=== PATIENT | male | born 1990 | race African-American/Black ===

== ENCOUNTER 2021-07-26 11:01 | Emergency (ER) | payer MEDICARE, MEDICAID ==
[~2021-07-26] VITALS: Ht 170.2 cm; Wt 93.0 kg
[~2021-07-26 11:01] MED LIST: NO MEDS
[2021-07-26] MEDS ORDERED: KETOROLAC 30MG/ML VIAL IM ONE (11:30)
[2021-07-26 12:12] LABS: CLARITY URINE CLEAR (CLEAR); COLOR URINE DK YELLOW (YELLOW); KETONES URINE TRACE (NEGATIVE); LEUKOCYTE ESTERASE URINE 1+ (NEGATIVE); NITRITE URINE NEGATIVE (NEGATIVE); OCCULT BLOOD URINE NEGATIVE (NEGATIVE); PROTEIN URINE NEGATIVE (NEGATIVE); SPECIFIC GRAVITY URINE 1.029 (1.005-1.030)
[2021-07-26 12:18] VITALS: BP 160/82
[2021-07-26] MEDS ORDERED: IBUP-2029 MT (12:19)
[2021-07-26] MEDS ORDERED: CEPH500T MT (12:19)
== END 2021-07-26 12:50 | disposition home or self-care (01) ==
LOC: ER 11:01
DX: N45.2 Orchitis (principal); N39.0 Urinary tract infection, site not specified; N50.811 Right testicular pain; I10 Essential (primary) hypertension
CPT/HCPCS: 76870; 81003; 93976; 96372; 99284; J1885

== ENCOUNTER 2025-05-28 15:51 | Emergency (ER) | payer MEDICARE, MEDICAID ==
[~2025-05-28] VITALS: Ht 177.8 cm; Wt 86.0 kg
[~2025-05-28 15:51] MED LIST changes: +ALBU90AE INH; +AZIT500T8 MT; -NO MEDS; +P20 MT
[2025-05-28 16:20] VITALS: O2SAT 97
[2025-05-28 17:20] LABS: CLARITY URINE CLEAR (CLEAR); COLOR URINE YELLOW (YELLOW); GLUCOSE URINE NEGATIVE (NEGATIVE); KETONES URINE TRACE (NEGATIVE); LEUKOCYTE ESTERASE URINE NEGATIVE (NEGATIVE); NITRITE URINE NEGATIVE (NEGATIVE); OCCULT BLOOD URINE NEGATIVE (NEGATIVE); PH URINE 8.0 (4.5-8.0); PROTEIN URINE NEGATIVE (NEGATIVE); SPECIFIC GRAVITY URINE 1.021 (1.005-1.030); UROBILINOGEN URINE 1.0 E.U./dL (0.2-1.0)
[2025-05-28] MEDS ORDERED: CEPH500C2 MT (19:23)
[2025-05-28] MEDS ORDERED: TC025C15 TP (19:23)
[2025-05-28 20:02] VITALS: BP 156/92; PULSE 86; RESP 20; TEMP 36.7; O2SAT 92
== END 2025-05-28 20:04 | disposition home or self-care (01) ==
LOC: ER 15:51
DX: N47.1 Phimosis (principal); N48.89 Other specified disorders of penis; Z79.52 Long term (current) use of systemic steroids; Z79.899 Other long term (current) drug therapy
CPT/HCPCS: 81003; 99283